=== PATIENT | male | born 1980 | race Caucasian/White ===

== ENCOUNTER → 2018-07-07 | Outpatient (CLI) | payer OTHER ==
[~2018-07-07] MED LIST: CIPROFLOXACIN500 M1 PO; NORCO 5-325 TA1 EACH PO
== END ==
LOC: ULTRA 09:12
DX: N28.1 Cyst of kidney, acquired (principal); M54.5 Low back pain

== ENCOUNTER 2020-03-24 12:20 | Emergency (ER) | payer OTHER ==
[~2020-03-24] VITALS: Ht 177.8 cm; Wt 123.8 kg
[2020-03-24] MEDS ORDERED: ADDERALL 20 MG20 MG PO (12:44)
[2020-03-24 13:30] LABS: ABSOLUTE NEUTROPHILS 3.8 thou/uL (1.4-8.2); BASOPHILS 0.5 % (0.0-2.0); HEMOGLOBIN 16.6 gm/dL (14.0-18.0); LYMPHOCYTES 23.1 % (24.0-44.0); MCH 30.4 pg (26.0-34.0); MCHC 34.6 g/dL (28.0-37.0); MONOCYTES 11.2 % (1.0-8.0); PLATELET COUNT 258 thou/uL (150-400); POLYS 64.2 % (36.0-66.0); RBC 5.46 mil/uL (4.50-6.00); RDW 13.6 % (10.5-14.5)
[2020-03-24 13:36] LABS: CALCIUM 9.2 mg/dL (8.5-10.1); POTASSIUM 4.1 mmol/L (3.5-5.1)
[2020-03-24 13:39] LABS: ALBUMIN 3.8 g/dL (3.4-5.0); TOTAL BILIRUBIN 0.4 mg/dL (0.2-1.0); TOTAL PROTEIN 7.3 g/dL (6.4-8.2)
[2020-03-24 13:50] LABS: APTT 26.3 Seconds (24.5-32.8)
[2020-03-24] MEDS ORDERED: VALIUM2 MG PO (15:04)
[2020-03-24] MEDS ORDERED: TRAMADOL 50 MG50 MG PO (15:04)
[2020-03-24] MEDS ORDERED: MECLIZINE HCL25 M1 PO (15:04)
[2020-03-24 15:32] VITALS: BP 160/106
== END 2020-03-24 15:33 | disposition home or self-care (01) ==
LOC: ER 12:20
PROVIDERS: Emergency Medicine
DX: S06.0X9A Concussion with loss of consciousness of unspecified duration, initial encounter (principal); S30.1XXA Contusion of abdominal wall, initial encounter; S20.222A Contusion of left back wall of thorax, initial encounter; R42 Dizziness and giddiness; M54.5 Low back pain; M43.6 Torticollis; R07.89 Other chest pain; W13.2XXA Fall from, out of or through roof, initial encounter; Y93.89 Activity, other specified; Y92.098 Other place in other non-institutional residence as the place of occurrence of the external cause; Y99.8 Other external cause status